=== PATIENT | male | born 1975 | race Caucasian/White ===

== ENCOUNTER 2020-04-29 01:53 | Outpatient (CLI) | payer BC, SELFPAY ==
[2020-04-30 03:00] LABS: SARS-CoV-2 RNA PCR Negative
== END 2020-04-29 01:54 | disposition home or self-care (01) ==
LOC: ANHCOVIDDT 01:53
PROVIDERS: PCP Physician Assistant; Visit Provider Internal Medicine Gastroenterology
DX: Z01.812 Encounter for preprocedural laboratory examination (principal); Z20.828 Contact with and (suspected) exposure to other viral communicable diseases
CPT/HCPCS: 87635; C9803; U0003

== ENCOUNTER 2020-05-01 02:56 | Day surgery (SDC) | payer BC, SELFPAY ==
[2020-04-27 13:56] VITALS: BMI 27.1
--- NOTE | 2020-05-01 10:25 | WPDANESEPPF ---
Anes - Initial Pre Proc Eval Procedure: Operation Date: 05/01/20 11:30 Proposed Procedures p Esophagogastroduodenoscopy - Geovanni Villalobos MD Date/Time: 05/01/20 10:25 Surgeon: Geovanni Villalobos MD Pre Op Diagnosis: N & V Patient Data Age: 44 Gender: M Height: 6 ft Weight: 90.9 kg Allergies Allergy/AdvReac Type Severity Reaction Status Date / Time No Known Allergies Allergy Verified 04/27/20 13:51 Home Medications Medication Instructions Recorded Confirmed Type baclofen 10 mg PO TID 04/27/20 04/27/20 History bupropion HCl 150 mg PO DAILY 04/27/20 04/27/20 History buspirone 10 mg PO BID 04/27/20 04/27/20 History diltiazem HCl 360 mg PO DAILY 04/27/20 04/27/20 History hydroxyzine HCl 50 mg PO BID 04/27/20 04/27/20 History ondansetron HCl 8 mg PO DAILY 04/27/20 04/27/20 History oxycodone-acetaminophen 1 tablet PO Q6-8H PRN 04/27/20 04/27/20 History pregabalin 75 mg PO BID 04/27/20 04/27/20 History quetiapine 400 mg PO TID 04/27/20 04/27/20 History Patient hx anesthesia problems: none Family hx anesthesia problems: none PMFSH Past Medical History Medical History (Updated 05/01/20 @ 10:25 by Jaime Vega MD) HTN (hypertension) Overweight Surgical History Surgical History (Updated 05/01/20 @ 10:26 by Jaime Vega MD) H/O lumbosacral spine surgery Social History Social History Smoking status: Never smoker Alcohol intake: never Substance use: never Substance use type: does not use Living arrangements: with family Spiritual care concerns: No Anes - Eval Final PreProcedure Day of Procedure 05/01/20 10:25 Patient weight: overweight Heart: regular rate and rhythm Lungs: clear to auscultation Airway: Mallampati scale class II and special considerations poor opening Neurological: alert and oriented Last oral intake: >/= 8 hours ASA classification: III Emergent: no Anesthetic plan: proceed Anesthesia type and monitoring: general GIVS and standard monitoring Informed Consent: The patient's anesthetic plan and its attendant risks and benefits were discussed with the patient/family/POA. Questions were solicited and answers provided to the satisfaction of the patient/family/POA.
[2020-05-01] MEDS: LACTATED RINGERS 1,000 ML 150 ML IV CONT (10:28)
[2020-05-01 10:30] VITALS: BP 131/86; PULSE 104; RESP 18; TEMP 36.1; O2SAT 98; BMI 27.3
--- NOTE | 2020-05-01 10:43 | WPDGICN ---
Assessment and Plan Assessment and plan (1) Constipation: Code(s): K59.00 - Constipation, unspecified Status: Acute Assessment and Plan: Patient has a history of chronic constipation. Started on Linzess. But he has not taken it frequent we enough to know if at work she a plan is to continue Linzess 290 micro g p.o. daily. (2) Nausea and vomiting in adult: Code(s): R11.2 - Nausea with vomiting, unspecified Status: Acute Assessment and Plan: Patient has persistent nausea vomiting. Likely related to his constipation. However because of other significant historical issues an EGD will be performed. Further recommendations will be given after endoscopy. GI Consult Note Consult date/time: 05/01/20 10:43 HPI: Joseph Reyna is a 44 year old male Seen in evaluation at the request of Dr. Geovanni Borges. patient has complaints of nausea vomiting on a daily basis. For this reason presents for EGD states symptoms began after being hospitalized at [facility] 1 year ago. At that time had a spontaneous pneumothorax. Eventually found to have pancreatitis. He subsequently over the last several months has persistent nausea vomiting on a daily basis. Complains of substernal burning. He reports bowel movements only every 2 weeks. He has empirically been treated with Zofran which helps the nausea vomiting. Apparently this was discontinued because of insurance issues. He reports a colonoscopy 1 year ago revealed hemorrhoids and diverticulosis. CT scan performed in January of this years unremarkable. No evidence of pancreatitis. Laboratory testing has return to normal. Review of Systems Review of Systems: All systems reviewed & are unremarkable except as noted in HPI and below PMFSH Past Medical History Medical History (Updated 05/01/20 @ 10:45 by Geovanni Villalobos MD) HTN (hypertension) Overweight Surgical History Surgical History (Updated 05/01/20 @ 10:26 by Jaime Vega MD) H/O lumbosacral spine surgery Social History Social History Smoking status: Never smoker Alcohol intake: never Substance use: never Substance use type: does not use Living arrangements: with family Spiritual care concerns: No Meds Home Medications and Allergies Home Medications Medication Instructions Recorded Confirmed Type baclofen 10 mg PO TID 04/27/20 04/27/20 History bupropion HCl 150 mg PO DAILY 04/27/20 04/27/20 History buspirone 10 mg PO BID 04/27/20 04/27/20 History diltiazem HCl 360 mg PO DAILY 04/27/20 04/27/20 History hydroxyzine HCl 50 mg PO BID 04/27/20 04/27/20 History ondansetron HCl 8 mg PO DAILY 04/27/20 04/27/20 History oxycodone-acetaminophen 1 tablet PO Q6-8H PRN 04/27/20 04/27/20 History pregabalin 75 mg PO BID 04/27/20 04/27/20 History quetiapine 400 mg PO TID 04/27/20 04/27/20 History Allergies Allergy/AdvReac Type Severity Reaction Status Date / Time No Known Allergies Allergy Verified 05/01/20 10:29 Vital Signs Vital Signs - 24 hr 05/01/20 10:30 Temperature 96.9 F L Pulse Rate 104 H Respiratory Rate 18 Blood Pressure 131/86 Pulse Oximetry 98 Exam Narrative: Exam Narrative: Physical exam reveals patient be alert. Oriented x3. Vital signs stable. He is anicteric. Lungs are clear to auscultation and percussion. Heart is without murmur or extra sounds. Abdominal exam bowel sounds present soft nontender with no organomegaly. Digital external rectal exam normal.
[2020-05-01 11:50] VITALS: BP 113/80; PULSE 84; RESP 16; O2SAT 98
[2020-05-01 12:00] VITALS: BP 116/81; PULSE 77; RESP 16; O2SAT 100
[2020-05-01 12:10] VITALS: BP 127/95; PULSE 80; RESP 18; O2SAT 99
== END 2020-05-01 12:32 | disposition home or self-care (01) ==
PROVIDERS: PCP Physician Assistant; Visit Provider Internal Medicine Gastroenterology
PROC: 0DJ08ZZ Inspection of Upper Intestinal Tract, Via Natural or Artificial Opening Endoscopic (ICD-10-PCS; CPT 43235; principal; 2020-05-01 11:30)
DX: R11.2 Nausea with vomiting, unspecified (principal); K22.10 Ulcer of esophagus without bleeding; K59.00 Constipation, unspecified; I10 Essential (primary) hypertension; E66.3 Overweight
CPT/HCPCS: 43235; J2704; J7120

== ENCOUNTER 2021-10-06 09:58 | Emergency (ER) | payer BC, SELFPAY ==
--- NOTE | ~2021-10-06 | XR_ITS ---
EXAMINATION: XR chest 2V EXAM DATE: 10/06/2021 10:58 INDICATION: Cough, SOB, diaphoretic . TECHNIQUE: Frontal and lateral projections of the chest obtained and reviewed. Comparison is made to prior examination from 01/03/2019. FINDINGS: There is a there is a large left pleural effusion. No pleural effusion today. There is ext ensive left-sided, small amount of right basilar airspace disease, appearance is most consistent with pneumonia. No pneumothorax. Cardiomediastinal silhouette is normal. There are no osseous abnormaliti es identified. IMPRESSION: Extensive left lung, small right basilar airspace disease probably pneumonia. Reviewed, dictated and finalized at location B.
--- NOTE | ~2021-10-06 | CT_ITS ---
EXAMINATION: CTA chest PE protocol EXAM DATE: 10/06/2021 11:47 INDICATION: Elevated d dimer . TECHNIQUE: Spiral CTA of the chest (pulmonary arteries) was performed with 100 cc Omnipaque 350 intr avenous contrast injection. Images were acquired during the pulmonary arterial phase. Coronal maxi mum intensity projection 3D-reconstructions were created by the technologist on dedicated workstation . Axial, coronal and sagittal reformatted images were reviewed. The dose-length product (DLP) for t his examination was 497.97 mGy-cm. The exposure was tailored according to patient size (auto mA exp osure control), and iterative reconstruction (ASIR) was used as additional dose reduction technique. Comparison is made to prior examination from 01/01/2019. FINDINGS: Pulmonary arteries are well opacified and without intraluminal filling defects. No thora cic aortic dissection. There is extensive left-sided groundglass density airspace disease, moderate amount of right basilar groundglass airspace disease. There is more central distribution with relativ e sparing of the periphery which would be atypical appearance for COVID 19, but viral and bacterial p neumonia should be considered. There are no pleural or pericardial effusions. Tracheobronchial kit e is patent. There is no mediastinal, hilar or axillary lymphadenopathy. There is no pneumothorax . Heart normal in size. No evidence of coronary arterial calcification. Upper abdomen is unremar kable. There is thoracic spondylosis without osteoblastic or osteolytic lesions identified. Previ ously seen moderate left pleural effusion, adjacent confluent airspace disease has resolved. IMPRESSION: Extensive left, moderate right-sided groundglass density airspace disease likely pneumoni a. Reviewed, dictated and finalized at location B. IMPRESSION: Extensive left, moderate right-sided groundglass density airspace d isease likely pneumonia.
[2021-10-06 09:57] VITALS: BP 161/106; PULSE 109; RESP 15; TEMP 37.3; O2SAT 98
[2021-10-06 10:01] VITALS: PULSE 108
--- NOTE | 2021-10-06 10:07 | ECG_ITS ---
Measurements Intervals [place] Rate: 108 P: 46 VA: 142 QRS: -25 QRSD: 105 T: 72 QT: 347 QTc: 467 Interpretive Statements SINUS TACHYCARDIA POSSIBLE LEFT ATRIAL ENLARGEMENT [-0.1mV P WAVE IN V1/V2] BORDERLINE LEFT AXIS DEVIATION [QRS AXIS < -20] NONSPECIFIC T-WAVE ABNORMALITY ABNORMAL ECG ABNORMAL RHYTHM ECG COMPARED TO ECG 01/03/2019 11:59:29 T-WAVE ABNORMALITY NOW PRESENT Electronically Signed On 10-06-2021 15:52:54 CDT by Jackson Nair M.D.
--- NOTE | 2021-10-06 10:10 | ED.SOB ---
HPI - SOB/Dyspnea General Chief Complaint: Shortness of Breath/Dyspnea Stated Complaint: SOB Time Seen by Provider: 10/06/21 10:00 History of Present Illness HPI Narrative: 45-year-old male presents emergency room complaints of shortness of breath difficulty breathing, fever since Monday. Patient states he is increasingly More short of breath today. Patient has a history of pneumonia and spontaneous pneumothorax. Related Data Home Medications Medication Instructions Recorded Confirmed baclofen 10 mg PO TID 04/27/20 04/27/20 bupropion HCl 150 mg PO DAILY 04/27/20 04/27/20 buspirone 10 mg PO BID 04/27/20 04/27/20 diltiazem HCl 360 mg PO DAILY 04/27/20 04/27/20 hydroxyzine HCl 50 mg PO BID 04/27/20 04/27/20 ondansetron HCl 8 mg PO DAILY 04/27/20 04/27/20 oxycodone-acetaminophen 1 tablet PO Q6-8H PRN 04/27/20 04/27/20 pregabalin 75 mg PO BID 04/27/20 04/27/20 quetiapine 400 mg PO TID 04/27/20 04/27/20 Allergies Allergy/AdvReac Type Severity Reaction Status Date / Time No Known Allergies Allergy Verified 10/06/21 10:04 Review of Systems Review of Systems: CONSTITUTIONAL: Reports fever EYES: Denies visual changes, redness, or discharge. ENT: Denies rhinorrhea, congestion, sore throat, or otalgia. CARDIOVASCULAR: Denies chest pain, palpitations, or edema. RESPIRATORY: Reports productive cough and dyspnea GASTROINTESTINAL: Denies abdominal pain, nausea, vomiting, or diarrhea. GENITOURINARY: Denies dysuria or hematuria. SKIN: Denies rash or itching. MUSCULOSKELETAL: Denies back pain, joint pain, or myalgia. NEUROLOGIC: Denies headache, numbness, dizziness, or weakness. PSYCHIATRIC: Denies anxiety or depression. [facility] Past Medical History Medical History HTN (hypertension) Overweight Surgical History Surgical History H/O lumbosacral spine surgery Social History Social History Smoking status: Never smoker Alcohol intake: never Substance use: never Substance use type: does not use Spiritual care concerns: No Exam Narrative: GENERAL: Ill appearing, well-nourished, and in mild acute respiratory distress. HEAD: Normocephalic, atraumatic. EYES: PERRLA and EOMI. CHEST: Coarse breath sounds throughout lung hernandez HEART: Regular rate and rhythm. No murmur heard. Normal peripheral pulses. ABDOMEN: Soft, nontender, nondistended, normal active bowel sounds. EXTREMITIES: Normal range of motion. No edema. SKIN: Warm, dry, no rash. NEURO: No focal deficits. Alert and oriented x3. PSYCH: Normal mood and affect. Course Vital Signs Vital signs: Vital Signs Temperature 37.3 C 10/06/21 09:57 Pulse Rate 109 H 10/06/21 09:57 Respiratory Rate 15 10/06/21 09:57 Blood Pressure 161/106 H 10/06/21 09:57 Pulse Oximetry 98 10/06/21 09:57 Temperature 37.3 C 10/06/21 09:57 Pulse Rate 103 H 10/06/21 10:38 Respiratory Rate 16 10/06/21 10:38 Blood Pressure 161/106 H 10/06/21 09:57 Pulse Oximetry 98 10/06/21 10:22 MDM - SOB/Dyspnea MDM Narrative Medical decision making narrative: 45-year-old male presents emergency room complaints of shortness of breath difficulty breathing, and fever. CBC shows a slight anemia. CMP is unremarkable. Troponin was negative. Curb 65 score 0 Differential Diagnosis Differential diagnosis: Likely community acquired pneumonia Lab Data Attestation: I reviewed the patient's lab results. Result diagrams: 10/06/21 10:23 10/06/21 10:23 Labs: Lab Results 10/06/21 10/06/21 10/06/21 Range/Units 10:23 10:23 10:23 WBC 8.4 (4.5-10.0) K/mm3 RBC 4.29 L (4.6-6.20) M/mm3 Hgb 10.9 L (14.0-18.0) g/dL Hct 34.4 L (42.0-52.0) % MCV 80.2 (80-100) fl MCH 25.4 L (26-34) pg MCHC 31.7 L (32-36) g/dl RDW 13.6 (11.5-14.5) % Plt Count 233
[2021-10-06] MEDS: SODIUM CHLORIDE 0.9% IV 1,000 ML 999 ML IV CONT (10:13)
[2021-10-06] MEDS: KETOROLAC 30 MG/ML VIAL (*BKC) IV PUSH (10:13)
[2021-10-06 10:22] VITALS: O2SAT 98
[2021-10-06] MEDS: ALBUTEROL SULFATE NEB 2.5 MG/0.5 ML INH 5 MG INHALATION (10:30)
[2021-10-06] MEDS: IPRATROPIUM BR 0.02% INH SOLN 0.5 MG/2.5 ML VIAL INHALATION (10:30)
[2021-10-06 10:31] VITALS: PULSE 102; RESP 15
[2021-10-06 10:31] LABS: Basophils Percent Auto 0.1 % (0.2-1.2); Eosinophils Percent Auto 0.5 % (0-4.4); Hematocrit 34.4 % (42.0-52.0); Hemoglobin 10.9 g/dL (14.0-18.0); Immature Granulocyte Absolute 0.06 K/mm3 (0.00-0.031); Immature Granulocyte Percent A 0.7 % (0-0.5); Lymphocytes Absolute Auto 0.67 K/mm3 (0.9-3.2); Lymphocytes Percent Auto 7.9 % (18.3-44.2); Mean Corpuscular HGB Conc 31.7 g/dl (32-36); Mean Corpuscular Hemoglobin 25.4 pg (26-34); Mean Corpuscular Volume 80.2 fl (80-100); Monocytes Absolute Auto 0.6 K/mm3 (0.1-0.6); Neutrophils Absolute Auto 7.1 K/mm3 (1.3-6.7); Neutrophils Percent Auto 83.8 % (45.5-73.1); Platelet Count Result 233 k/mm3 (150-375); Red Blood Count 4.29 M/mm3 (4.6-6.20); Red Cell Distribution Width 13.6 % (11.5-14.5); White Blood Count 8.4 K/mm3 (4.5-10.0)
[2021-10-06 10:38] VITALS: PULSE 103; RESP 16
[2021-10-06 10:41] LABS: Lactic Acid Reflex 1.1 mmol/L (0.7-2.1)
[2021-10-06 10:42] LABS: Alanine Aminotransferase 20 U/L (4-50); Albumin Level 4.5 g/dL (3.5-5.1); Alkaline Phosphatase 61 U/L (38-126); Anion Gap 9 mmol/L (8-16); Aspartate Amino Transferase 23 U/L (17-59); Bilirubin,Total 0.7 mg/dL (0.2-1.3); Blood Urea Nitrogen 8 mg/dL (9-20); Calcium 8.7 mg/dL (8.4-10.2); Carbon Dioxide 28 mmol/L (22-30); Chloride 96 mmol/L (98-107); Estimated CRCL calculation 133 ml/min; Estimated Glomerular Filt Rate > 60; Glucose 137 mg/dL (65-110); Potassium 3.4 mmol/L (3.4-5.0); Sodium 133 mmol/L (137-145)
[2021-10-06 10:52] LABS: Troponin I < 0.012 ng/mL (0.000-0.034)
[2021-10-06 11:10] LABS: Influenza A QL RT-PCR Negative (Negative); Influenza B QL RT-PCR Negative (Negative); SARS-CoV-2 RNA PCR Negative
[2021-10-06 11:20] LABS: D Dimer 0.53 ug/mL (<0.48)
[2021-10-06] MEDS: methylPREDNISolone SOD SUCC 125 MG VIAL IV PUSH (12:08)
[2021-10-06] MEDS: ACETAMINOPHEN 500 MG TABLET 1000 MG PO (12:33)
[2021-10-06 12:48] VITALS: BP 131/94; PULSE 95; RESP 13; O2SAT 96
== END 2021-10-06 12:50 | disposition home or self-care (01) ==
PROVIDERS: Emergency Provider Nurse Practitioner Family; PCP Physician Assistant
DX: J18.9 Pneumonia, unspecified organism (principal); Z20.822 Contact with and (suspected) exposure to COVID-19; I10 Essential (primary) hypertension; E66.3 Overweight; Z68.26 Body mass index [BMI] 26.0-26.9, adult
CPT/HCPCS: 36415; 71046; 71275; 80053; 83605; 84484; 85025; 85380; 87040; 87502; 93005; 94640; 96361; 96365; 96375; 99284; A9270; C9803; J0696; J1885; J2930; J7030; Q9967; U0003; U0005

== ENCOUNTER 2022-01-18 10:19 | Emergency (ER) | payer BC, SELFPAY ==
[2022-01-18 10:32] VITALS: BP 126/85; PULSE 98; RESP 18; TEMP 37.4; O2SAT 99
--- NOTE | 2022-01-18 10:49 | ED.SKABFB ---
HPI - Skin/Abscess/Foreign Bdy General Chief complaint: Skin/Abscess/Foreign Body Stated complaint: Surgical Incission Pain Time Seen by Provider: 01/18/22 10:50 Source: patient, RN notes reviewed and old records reviewed Mode of arrival: ambulatory Limitations: no limitations History of Present Illness HPI narrative: 46 year old male presents to [facility] care with complaints of 2-3 days symptoms of left lower back pain over previous incision. Patient reports that he has burning, itching, and pain with warmth to area and is concerned he has infection in area of previous incision line since he has had staph infection in area before. Patient has noted red pustular lesions clustered in area with some scabbing noted. Patient has history of chronic back pain and is on daily pain medications for pain management. MD complaint: rash Onset (ago): day(s) (2-3) Location: back (left lower) Severity: moderate Severity scale (1-10): 4 Quality: burning and pruritic Pain Consistency: constant Treatments prior to arrival: prescription analgesic Related Data Home Medications Medication Instructions Recorded Confirmed baclofen 10 mg tablet 10 mg PO TID 04/27/20 04/27/20 bupropion HCl 150 mg 24 hr tablet, 150 mg PO DAILY 04/27/20 04/27/20 extended release buspirone 10 mg tablet 10 mg PO BID 04/27/20 04/27/20 diltiazem HCl 360 mg capsule,24 360 mg PO DAILY 04/27/20 04/27/20 hr,extended release hydroxyzine HCl 50 mg tablet 50 mg PO BID 04/27/20 04/27/20 ondansetron HCl 8 mg tablet 8 mg PO DAILY 04/27/20 04/27/20 oxycodone-acetaminophen 10 mg-325 1 tablet PO Q6-8H PRN Pain 04/27/20 04/27/20 mg tablet pregabalin 75 mg capsule 75 mg PO BID 04/27/20 04/27/20 quetiapine 400 mg tablet 400 mg PO TID 04/27/20 04/27/20 Allergies Allergy/AdvReac Type Severity Reaction Status Date / Time No Known Allergies Allergy Verified 01/18/22 10:48 Review of Systems Review of Systems: CONSTITUTIONAL: Denies fever, chills, or sweats. EYES: Denies visual changes, redness, or discharge. ENT: Denies rhinorrhea, congestion, sore throat, or otalgia. CARDIOVASCULAR: Denies chest pain, palpitations, or edema. RESPIRATORY: Denies cough or dyspnea. GASTROINTESTINAL: Denies abdominal pain, nausea, vomiting, or diarrhea. GENITOURINARY: Denies dysuria or hematuria. SKIN: Positive for rash to left lower back with burning and tingling MUSCULOSKELETAL: Chronic back pain, joint pain, or myalgia. NEUROLOGIC: Denies headache, numbness, or weakness. PSYCHIATRIC: Positive for anxiety or depression. All systems reviewed & are unremarkable except as noted in HPI and below PMFSH Past Medical History Medical History (Updated 01/18/22 @ 11:29 by Cristy Vargas NP) Chronic back pain HTN (hypertension) Overweight Pneumonia Surgical History Surgical History (Updated 01/18/22 @ 11:28 by Cristy Vargas NP) H/O lumbosacral spine surgery numerous surgeries with hardware Social History Social History (Updated 01/18/22 @ 11:30 by Cristy Vargas NP) Smoking status: Never smoker Alcohol intake: never Substance use type: opiates Last use: on opiates for pain management of chronic back pain Living arrangements: with family Gender identity (if verbalized by the patient): Male Spiritual care concerns: No Comments At time of signature, agree with nursing past medical, surgical, social and family history. There is no relevant family history pertinent to the presenting complaint Exam Narrative: GENERAL: Chronic ill-appearing, well-nourished, and in no acute distress. HEAD: Normocephalic, atraumatic. EYES: PERRLA and EOMI. ENT: Nares clear, no rhinorrhea or epistaxis. Mucous membranes moist.TM's normal with good light reflex, throat pink with no lesions or exudates, no tonsil swelling. NECK: Supple.no lymphadenopathy CHEST: Clear to auscultation. No respiratory distress.SAO2 99% on room air HEART: Regular rate and rhythm. No murmur heard. Normal keena
== END 2022-01-18 11:18 | disposition home or self-care (01) ==
PROVIDERS: Emergency Provider Registered Nurse; PCP Physician Assistant
DX: B02.9 Zoster without complications (principal); I10 Essential (primary) hypertension
CPT/HCPCS: 99213; G0463

== ENCOUNTER 2023-04-23 12:37 | Emergency (ER) | payer BC, SELFPAY ==
[2023-04-23] VITALS (30 sets, daily range): BP systolic 127–168; BP diastolic 91–127; PULSE 100–129; RESP 9–21; TEMP 36.6–36.9; O2SAT 99–100
--- NOTE | ~2023-04-23 | CT_ITS ---
EXAMINATION: CT abdomen pelvis w con DATE: 04/23/2023 14:26 INDICATION: Abdominal pain with vomiting and diarrhea TECHNIQUE: Computed tomography (CT) of the abdomen and pelvis was performed with 100 mL Omnipaque-350 intravenous contrast. Automated exposure control and iterative reconstruction technique were employe d. The dose-length product was 823.82 mGy-cm. COMPARISON: 06/01/2018. FINDINGS: Lower thorax: Left basilar scar/atelectasis Liver: Mild diffuse fatty infiltration Biliary/Gallbladder: Gallbladder is normal. No bile duct dilation. Pancreas: No mass or duct dilation. Spleen: Normal. Adrenals:No mass. Kidneys: No suspicious mass, obstructing stone, or hydronephrosis. GI tract: Mild distal esophageal and gastric wall edema. No small or large bowel dilation. Appendix n ot visualized, likely surgically absent. Mild diverticulosis without diverticulitis. Submucosal fat d eposition in the left colon. Mesentery/Peritoneum: No ascites, mass, or free air. Retroperitoneum: No mass. Mild atherosclerotic abdominal aortic and/or arterial calcifications. Pelvis: Pelvic organs are within normal limits. Soft Tissues: Soft tissues and body wall unremarkable. Bones: No acute osseous finding. Uncomplicated anterior lumbar fusion hardware. Old right posterior rib fractures. IMPRESSION: Hepatic steatosis. Mild esophagitis/gastritis. Reviewed, dictated and finalized at location K.
[2023-04-23 13:04] LABS: Basophils Percent Auto 0.1 % (0.2-1.2); Eosinophils Percent Auto 0.1 % (0-4.4); Hematocrit 44.4 % (42.0-52.0); Hemoglobin 13.9 g/dL (14.0-18.0); Immature Granulocyte Absolute 0.02 K/mm3 (0.00-0.031); Immature Granulocyte Percent A 0.2 % (0-0.5); Lymphocytes Absolute Auto 1.57 K/mm3 (0.9-3.2); Lymphocytes Percent Auto 18.7 % (18.3-44.2); Mean Corpuscular HGB Conc 31.3 g/dl (32-36); Mean Corpuscular Hemoglobin 22.7 pg (26-34); Mean Corpuscular Volume 72.7 fl (80-100); Mean Platelet Volume 9.1 fl (7.4-10.4); Monocytes Absolute Auto 0.4 K/mm3 (0.1-0.6); Neutrophils Absolute Auto 6.4 K/mm3 (1.3-6.7); Neutrophils Percent Auto 75.9 % (45.5-73.1); Platelet Count Result 335 k/mm3 (150-375); Red Blood Count 6.11 M/mm3 (4.6-6.20); Red Cell Distribution Width 15.7 % (11.5-14.5); White Blood Count 8.4 K/mm3 (4.5-10.0)
[2023-04-23 13:17] LABS: Alanine Aminotransferase 46 U/L (6-50); Albumin Level 5.1 g/dL (3.5-5.1); Alkaline Phosphatase 77 U/L (38-126); Anion Gap 25 mmol/L (8-16); Aspartate Amino Transferase 36 U/L (17-59); Bilirubin,Total 1.1 mg/dL (0.2-1.3); Blood Urea Nitrogen 7 mg/dL (9-20); Calcium 8.5 mg/dL (8.4-10.2); Carbon Dioxide 15 mmol/L (22-30); Chloride 101 mmol/L (98-107); Estimated CRCL calculation 109 ml/min; Estimated Glomerular Filt Rate > 60; Glucose 161 mg/dL (65-110); Lipase 372 U/L (23-300); Potassium 3.3 mmol/L (3.4-5.0); Sodium 141 mmol/L (137-145)
--- NOTE | 2023-04-23 13:19 | ED.NAVMDI ---
HPI - Nausea/Vomiting/Diarrhea General Chief complaint: Nausea/Vomiting/Diarrhea Stated complaint: N/V/D Time Seen by Provider: 04/23/23 13:05 Source: patient History of Present Illness HPI Narrative: 47 years old white male came from home by ambulance complaining of nausea, vomiting and diarrhea and general body aches including abdominal pain started 4 days ago. Patient reports a lot of vomiting a lot of diarrhea. He denies smoking cigarette, alcohol or drug use. History of hypertension and atrial fibrillation and spine fusion. Patient is disabled veterans. He denies sick exposure Related Data Home Medications Medication Instructions Recorded Confirmed baclofen 10 mg tablet 10 mg PO TID 04/27/20 04/27/20 bupropion HCl 150 mg 24 hr tablet, 150 mg PO DAILY 04/27/20 04/27/20 extended release buspirone 10 mg tablet 10 mg PO BID 04/27/20 04/27/20 diltiazem HCl 360 mg capsule,24 360 mg PO DAILY 04/27/20 04/27/20 hr,extended release hydroxyzine HCl 50 mg tablet 50 mg PO BID 04/27/20 04/27/20 ondansetron HCl 8 mg tablet 8 mg PO DAILY 04/27/20 04/27/20 oxycodone-acetaminophen 10 mg-325 1 tablet PO Q6-8H PRN Pain 04/27/20 04/27/20 mg tablet pregabalin 75 mg capsule 75 mg PO BID 04/27/20 04/27/20 quetiapine 400 mg tablet 400 mg PO TID 04/27/20 04/27/20 Allergies Allergy/AdvReac Type Severity Reaction Status Date / Time No Known Allergies Allergy Verified 01/18/22 10:48 Review of Systems Review of Systems: All systems reviewed & are unremarkable except as noted in HPI and below PMFSH Past Medical History Medical History Chronic back pain HTN (hypertension) Overweight Pneumonia Surgical History Surgical History H/O lumbosacral spine surgery numerous surgeries with hardware Social History Social History Smoking status: Never smoker Alcohol intake: never Substance use type: opiates Last use: on opiates for pain management of chronic back pain Living arrangements: with family Gender identity (if verbalized by the patient): Male Spiritual care concerns: No Exam Narrative: General appearance: Well-developed, well-nourished, looks in pain, slightly jittery Skin: Normal color Head: Normocephalic, nontraumatic Eyes: Clear conjunctiva ENT: Oropharynx normal, ears normal, nose normal Neck: Supple, nontender Chest and respiratory: Airway patent, no respiratory distress, no accessory muscle use Heart: Regular rate/rhythm Abdomen: Soft, diffuse tenderness,, no organomegaly, quiet bowel sounds Vascular: Normal peripheral pulses, normal capillary refill. Musculoskeletal: Normal range of motion, nontender back Neurologic: Alert and oriented ?3, CERTIFIED NURSING ATTENDANT is normal as tested, no gross motor deficit Course Vital Signs Vital signs: Vital Signs Temperature 36.6 C 04/23/23 12:50 Pulse Rate 125 H 04/23/23 12:50 Respiratory Rate 16 04/23/23 12:50 Blood Pressure 133/91 H 04/23/23 12:50 Pulse Oximetry 100 04/23/23 12:50 Oxygen Delivery Room Air 04/23/23 12:50 Temperature 36.9 C 04/23/23 13:24 Pulse Rate 118 H 04/23/23 17:00 Respiratory Rate 14 04/23/23 17:00 Blood Pressure 145/104 H 04/23/23 16:46 Pulse Oximetry 99 04/23/23 17:00 Oxygen Delivery Room Air 04/23/23 12:50 MDM - Nausea/Vomiting/Diarrhea MDM Narrative Medical decision making narrative: 47 years old white male came with nausea vomiting and diarrhea. Physical exam showed some diffuse tenderness, differential diagnosis of viral gastroenteritis, anxiety related sym
[2023-04-23] MEDS: SODIUM CHLORIDE 0.9% IV 2,000 ML 999 ML IV CONT (13:33)
[2023-04-23] MEDS: ONDANSETRON INJ 4 MG/2 ML VIAL IV PUSH (13:34)
[2023-04-23 14:03] LABS: Influenza A QL RT-PCR Negative (Negative); Influenza B QL RT-PCR Negative (Negative); RSV RNA, RT-PCR Negative (Negative); SARS-CoV-2 RNA PCR Negative (Negative)
[2023-04-23 14:25] LABS: Appearance Urine Cloudy (Clear); Bacteria Urine None Seen /hpf; Bilirubin Urine Negative (Negative); Blood Urine Negative (Negative); Color Urine Yellow (Yellow); Glucose Urine UA Negative (Negative); Ketones Urine 1+ mg/dL (Negative); Leukocyte Esterase Ur Negative LEU/UL (Negative); Need Manual Microscopic Reviewed; Nitrate Urine Negative (Negative); Protein Urine 1+ mg/dL (Negative); RBC Urine 0-2 /hpf (0-2); Specific Grav Ur 1.015 (1.001-1.035); Squamous Epithelial Cell Urine Few /hpf (Few); Urobilinogen Urine 0.2 mg/dL (<2.0); WBC Urine 0-5 /hpf; pH Urine 5.5 (5.0-9.0)
[2023-04-23 14:27] LABS: Add Urine Microscopic? YES
[2023-04-23] MEDS: METOCLOPRAMIDE HCL INJ 10 MG/2 ML VIAL IV PUSH (15:39)
[2023-04-23] MEDS: LORazepam INJ (*CRX) 2 MG/ML VIAL 1 MG IV PUSH (15:40)
[2023-04-23] MEDS: diphenhydrAMINE HCl INJ 50 MG/ML VIAL IV PUSH (15:40)
[2023-04-23] MEDS: BELLADONNA ALK/PHENOB ELIX 10 ML, MAG HYDROX/ALUMINUM HYD/SIMETH 30 ML, LIDOCAINE HCL 2... PO (17:03)
[2023-04-23] MEDS: ONDANSETRON HCL ODT 4 MG TABLET PO (18:12)
== END 2023-04-23 18:21 | disposition home or self-care (01) ==
PROVIDERS: Preventive Medicine Aerospace Medicine; Emergency Provider Emergency Medicine; PCP Physician Assistant
DX: K52.9 Noninfective gastroenteritis and colitis, unspecified (principal); E87.6 Hypokalemia; K29.70 Gastritis, unspecified, without bleeding; I10 Essential (primary) hypertension; Z20.822 Contact with and (suspected) exposure to COVID-19
CPT/HCPCS: 36415; 74177; 80053; 81001; 83690; 85025; 87637; 96361; 96374; 96375; 99284; A9270; J1200; J2060; J2405; J2765; J7030; Q9967

== ENCOUNTER 2024-04-26 13:27 | Outpatient (CLI) | payer BC, SELFPAY | END 2024-04-26 13:28 | disposition home or self-care (01) | PROVIDERS: PCP Physician Assistant; Visit Provider Nurse Practitioner Family | DX: R06.09 Other forms of dyspnea (principal) | CPT/HCPCS: 94060; 94618; 94726; 94729 ==

== ENCOUNTER 2024-05-20 08:10 | Outpatient (CLI) | payer BC, SELFPAY ==
--- NOTE | 2024-06-12 13:23 | WPDSLEEPSTUD ---
Sleep Study Date of Study: 05/20/24 Ordering Provider: Devin Christina APRN Interpreting Physician: Criselda Nice DO Sleep Study Type: Split Polysomnogram Height: 1.83 m Weight: 88.451 kg Body Mass Index: 26.4 Neck Circumference (inches): 17 [place]: 13 Reason for Sleep Study Daytime hypersomnia Sleep History The patient is a 48-year-old male that had a sleep study ordered by the pulmonary group for re-evaluation of sleep apnea. The patient constantly awakens from sleep short of breath he frequently awakens at night with heartburn, belching or cough. He constantly snores loudly enough that others complain. He frequently has woken gasping for air throughout the night. He frequently has breathing problems at night observed by himself or others. He frequently sweats excessively at night. He occasionally has heart palpitations or irregular heartbeats during the night. He occasionally falls asleep during the day but never while driving. He denies sleep paralysis, cataplexy and hypnagogic / hypnopompic hallucinations. He denies having trouble at school or work due to sleepiness. He denies feeling afraid of going to sleep. He denies having nightmares. He occasionally remembers his dreams. He constantly has thoughts racing through his mind. He occasionally feels sad, depressed and anxious. He constantly has muscular tension. He occasionally notices parts of his body jerk. He frequently kicks during the. He constantly has crawling and aching feelings in his legs and constantly has leg pain during the night. He constantly grinds his teeth during sleep and frequently awakens with morning jaw pain. He is constantly bothered by pain during the day and frequently awakened by pain during the night. He constantly wakes up feeling stiff in the morning. He constantly wakes up with sore or achy muscles. He constantly wakes up with pain in the neck, spine or other joints. He goes to bed between 10:00 p.m. to midnight on both weekdays and weekends. The amount of time it takes for him to fall asleep is variable. He wakes up 2-4 times throughout the night for unknown reasons and it can take 30-60 minutes to fall back asleep. He does not have a set wake up time. He does not stay in bed very long after waking up morning he currently lives with his kids part-time. He denies consuming any caffeinated beverages within 2 hours of bedtime. He denies engaging in physical exercise before bedtime. He will watch television before falling asleep. He will take naps in afternoon or the evening but they are not refreshing. He denies consuming any caffeinated beverages throughout the day. He denies tobacco, alcohol and recreational drug use. [facility] Past Medical History Medical History Gastro-esophageal reflux disease without esophagitis Anxiety Pneumonia Chronic back pain Overweight HTN (hypertension) Surgical History Surgical History H/O lumbosacral spine surgery numerous surgeries with hardware Social History Social History Smoking status: Never smoker Smokeless tobacco user: chewing tobacco Alcohol intake: former Substance use type: opiates Last use: on opiates for pain management of chronic back pain Living arrangements: with family Gender identity (if verbalized by the patient): Male Spiritual care concerns: No Medications Home Medications ?Medication ?Instructions ?Recorded ?Confirmed ?Type baclofen 10 mg tablet 10 mg PO TID 04/27/20 06/07/24 History buspirone 10 mg tablet 10 mg PO BID 04/27/20 06/07/24 History oxycodone-acetaminophen 10 mg-325 1 tablet PO Q6-8H PRN Pain 04/27/20 06/07/24 History mg tablet pregabalin 75 mg capsule 75 mg PO BID 04/27/20 06/07/24 History omeprazole 40 mg capsule,delayed 40 mg PO DAILY #30 caps 04/23/23 06/07/24 Rx release Sleep Procedure A full night split study using the [employer] multi-channel system recorded the standard physiologic parameters including EEG, EOG, submentalis EMG, anterior tibialis EMG, EKG, body position, nasal and oral airflow using nasal pressure sensor and thermistor.? Respiratory parameters of chest and abdominal movements were recorded with Respiratory Inductance Plethysmography belts. Oxygen saturation was recorded by pulse oximetry. Video monitoring was also performed. Sleep stages, periodic limb movements, and EEG arousals were scored in 30 second epochs according to the criteria of the AASM Scoring Manual. The Apnea-Hypopnea Index was calculated using CMS guidelines for definition of hypopnea with 4% O2 desaturations while scoring respiratory events. Sleep Architecture During the diagnostic portion of the study, the total recording time was 180.4 minutes. The total sleep time was 162.5 minutes. Sleep latency was 12.9 minutes.? REM sleep was not achieved during this portion of the study. Sleep Efficiency was 90.1%. The patient had 2 awakenings for an awakening index of 0.7. Wake after sleep onset time was 5.0 minutes. The patient spent 17.5 minutes, 10.8% of total sleep time in Stage N1. The patient spent 145.0 minutes, 89.2% in Stage N2. The patient spent 0.0 minutes, 0.0% in Stage N3. The patient spent 0.0 minutes, 0.0% in Stage REM sleep. At 02:12:14 AM the patient was placed on PAP treatment and was titrated at pressures ranging from 5 cm H20 up to 7 cm H20. During the treatment portion of the study, the total recording time was 243.0 minutes.? The total sleep time was 106.0 minutes. Sleep latency was 1.5 minutes. REM sleep was not achieved during this portion of the study. Sleep Efficiency was 43.6%. Wake after Sleep Onset time was 135.0 minutes. The patient spent 18.0 minutes, 17.0% of total sleep time in Stage N1. The patient spent 88.0 minutes, 83.0% in Stage N2. The patient spent 0.0 minutes, 0.0% in Stage N3. The patient spent 0.0 minutes, 0.0% in Stage REM. Respiratory Analysis During the diagnostic portion of the study, the patient had 1 hypopnea, 29 obstructive apneas, 4 mixed apneas, and 1 central apnea for an overall Apnea Hypopnea Index of 12.9 events per hour. The REM Apnea Hypopnea Index was 0. The NREM Apnea Hypopnea Index was 12.9. The patient had a Central Apnea Hypopnea Index of 0.4. There was no evidence of Ankit-Carroll Respirations. During the treatment portion of the study, the patient had 9 hypopneas, 1 obstructive apnea and 5 central apneas for an overall Apnea Hypopnea Index of 8.5 events per hour. The REM Apnea Hypopnea Index was 0. The NREM Apnea Hypopnea Index was 8.5. The patient had a Central Apnea Hypopnea Index of 2.8. There was no evidence of Ankit-Carroll Respirations. Arousals During the diagnostic portion of the study, there were a total of 32 arousals for an arousal index of 11.8.? There were 25 respiratory arousals for an index of 9.2. There were 0 periodic limb movement arousals for an index of 0.? There was 1 isolated limb movement arousal for an index of 0.4. There were 6 spontaneous arousals for an index of 2.2. During the treatment portion of the study, there were a total of 15 arousals for an index of 8.5.? There were 2 respiratory arousals for an index of 1.1. There were 0 periodic limb movement arousals for an index of 0.? There were 1 isolated limb movement arousals for an index of 0.6. There were 12 spontaneous arousals for an index of 6.8. Periodic Limb Movements During the diagnostic portion of the study, the patient had 4 isolated limb movements with an index of 1.5. The patient had 0 periodic limb movements with an index of 0. The patient had a total of 4 limb movements with a total limb movement index of 1.5. During the treatment portion of the study, the patient had 1 isolated limb movements with an index of 0.6. The patient had 0 periodic limb movements with an index of 0. The patient had a total of 1 limb movements with a total limb movement index of 0.6. Oximetry Data During the diagnostic portion of the study, the patient had an average oxygen saturation of 95.7% in wake with a minimum oxygen saturation of 92% and a maximum oxygen saturation of 98%. The patient had an average oxygen saturation of 95.0% in sleep with a minimum oxygen saturation of 90.0% and a maximum oxygen saturation of 98.0%. The patient had 29 oxygen desaturations resulting in an Oxygen Desaturation Index of 10.7. The patient spent 0 minutes of total sleep time with an oxygen saturation less than 88%. During the treatment portion of the study, the patient had an average oxygen saturation of 96.5% in wake with a minimum oxygen saturation of 93.0% and a maximum oxygen saturation of 99.0%. The patient had an average oxygen saturation of 94.4% in sleep with a minimum oxygen saturation of 90.0% and a maximum oxygen saturation of 98.0%. The patient had 25 oxygen desaturations resulting in an Oxygen Desaturation Index of 14.2. The patient spent 0 minutes of total sleep time with an oxygen saturation less than 88%. Snoring Profile Moderate snoring was present in the baseline portion of the study. The snoring resolved once the patient was started on CPAP. Cardiac Profile The EKG lead showed normal sinus rhythm. No arrhythmias or premature beats were seen. During the diagnostic portion of the study, the average pulse rate was 79.7 bpm.? The minimum pulse rate was 71.0 bpm. The maximum pulse rate was 88.0 bpm. During the treatment portion of the study, the average pulse rate was 77.6 bpm.? The minimum pulse rate was 69.0 bpm. The maximum pulse rate was 87.0 bpm. EEG Profile No signs of seizure activity seen. Assessment and Plan Assessment and Plan (1) LORI (obstructive sleep apnea): Code(s): G47.33 - Obstructive sleep apnea (adult) (pediatric) Status: Acute Assessment and Plan: In the baseline portion of study, the patient had an overall AHI of 12.9 with desaturation down to 90%. This is consistent with mild sleep apnea. Due to the patient's hypertension, he qualifies for treatment. The patient was started on CPAP 5 cm H2O and titrated to CPAP 7 cm H2O. The patient was unable to achieve REM sleep during this study. His sleep apnea resolved on the final pressure setting but he had a very poor sleep efficiency. I recommend that the patient be prescribed CPAP 7 cm H2O, size medium Resmed N30i mask, CPAP filters/tubing and heated humidity. The patient may need a hypnotic for a few weeks when first starting CPAP therapy to help improve compliance. The pressure setting may need to be adjusted in the future if he is able to achieve REM sleep at home and the residual AHI increases. This should be used with all episodes of sleep.? Compliance should be reviewed within 31-90 days of starting therapy for usage greater than 4 hours per night greater than 70% of the nights. The patient should be asked about symptoms such as?excessive daytime sleepiness, quality of sleep, decreased nocturia, increased?mental functioning such as memory, mood, and concentration. The patient's sleep history is highly suggestive of Restless Leg Syndrome. I recommend that the patient have a serum ferritin drawn for evaluation of iron deficiency anemia. If the patient has a serum ferritin less than 75 ng/mL, I recommend starting a daily iron supplement and a Vitamin C supplement for better absorption. If the serum ferritin is greater than 75 ng/mL, I recommend starting a dopamine agonist and titrating the dose until symptoms resolve. There are nonpharmacological methods to treat limb movements including daily exercise, stretching calf muscles before bed, avoiding excessive amounts of caffeine and alcohol, vitamin B supplementation, magnesium lotion massaged into legs before bed, and use of a weighted blanket. Data The data obtained during this sleep study is adequate for interpretation. Certification This sleep study has been reviewed by a board certified sleep medicine physician.
[2024-06-13 13:46] VITALS: BMI 26.4
== END 2024-05-21 06:35 | disposition home or self-care (01) ==
LOC: ANHCSM 08:11
PROVIDERS: PCP Physician Assistant; Visit Provider Nurse Practitioner Family
DX: G47.33 Obstructive sleep apnea (adult) (pediatric) (principal); I10 Essential (primary) hypertension; F39 Unspecified mood [affective] disorder
CPT/HCPCS: 95811